=== PATIENT | female | born 1985 | race Caucasian/White ===

== ENCOUNTER 2017-09-07 14:34 | Outpatient (CLI) | payer OTHER | END 2017-09-07 14:35 | disposition home or self-care (01) | LOC: LAB.F 14:34 | PROVIDERS: ATTEND Physician Assistant Medical | DX: L29.9 Pruritus, unspecified (principal) | CPT/HCPCS: 36415; 81599; 86003 ==

== ENCOUNTER 2017-10-24 07:49 | Outpatient (CLI) | payer OTHER ==
--- NOTE | 2017-10-24 11:34 | MRI Report ---
EXAM: RIGHT MIDFOOT MRI WITHOUT CONTRAST EXAM DATE: 10/24/2017 08:54 AM. CLINICAL HISTORY: Dorsomedial midfoot pain. COMPARISON: None. TECHNIQUE: Multiplanar, multisequence T1-weighted and fluid-sensitive sequences of the midfoot withou t contrast. Other: None. FINDINGS: Bones: No fractures, erosive or destructive changes. Articular Cartilage: Subchondral malacia and subjacent marrow edema seen on both sides of the first a nd second cuneiform articulation and also on both sides of the navicular-first and second cuneiform a rticulations. Remainder of the marrow cavity and articular surfaces appear intact. Ligaments: The visualized intertarsal, intermetatarsal, and tarsometatarsal ligaments are intact. Thi s includes the Lisfranc ligament. The visualized collateral ligaments are intact. Tendons: The flexor and extensor tendons are unremarkable. Musculature: No edema or fatty atrophy. Other: No effusions. The visualized portion of the tarsal tunnel is unremarkable. No intermetatarsal bursitis. The subcutaneous tissues are unremarkable. IMPRESSION: 1. Some chondromalacia and subjacent marrow edema on both sides the first and second cuneiform articu lation and also on both sides of the navicular-first and second cuneiform articulations. Remainder of the marrow cavity appears unremarkable. No fractures or erosive changes. 2. Tarsometatarsal ligaments, including Lisfranc ligament appear unremarkable. In the region of the M RI marker, extensor tendons at the distal medial midfoot appear intact. No tenosynovitis. [facility] SECTION Referring Provider Line: [phone] SITE ID: [id number]
== END 2017-10-24 07:50 | disposition home or self-care (01) ==
LOC: DI 07:49
PROVIDERS: ATTEND Physician Assistant Medical
DX: M67.873 Other specified disorders of tendon, right ankle and foot (principal); M94.271 Chondromalacia, right ankle and joints of right foot; M79.671 Pain in right foot

== ENCOUNTER 2018-08-17 21:45 | Outpatient (CLI) | payer OTHER ==
--- NOTE | 2018-08-17 23:33 | Ultrasound Report ---
Reason: PAIN, IN LEFT LOWER LEG Procedure Date: 08/17/2018 Accession Number: [id number] / [id number] Procedure: US - Duplex Ext Veins Left CPT Code: FULL RESULT: EXAM: LEFT LOWER EXTREMITY VENOUS ULTRASOUND EXAM DATE: 08/17/2018 11:08 PM. CLINICAL HISTORY: PAIN, IN LEFT LOWER LEG. COMPARISON: None. TECHNIQUE: Real-time sonographic vascular imaging was performed by the load checker through the lower extremity utilizing both color-flow and Doppler spectral analysis. Multiple medical office representative static images were saved for review. FINDINGS: Common Femoral Vein (CFV): Normal. CFV-GSV Junction: Normal. Profunda Femoral Vein (PFV): Normal. Femoral Vein (FV) Prox: Normal. Femoral Vein (FV) Mid: Normal. Femoral Vein (FV) Dist: Normal. Popliteal Vein: Normal. Posterior Tibial Veins: Normal. Peroneal Veins: Normal. Contralateral Side CFV: Normal. Other: None. IMPRESSION: No evidence for deep venous thrombosis. [facility]
== END 2018-08-17 21:46 | disposition home or self-care (01) ==
LOC: DI 21:45
PROVIDERS: ATTEND Physician Assistant Medical
DX: M79.662 Pain in left lower leg (principal)

== ENCOUNTER 2018-09-22 08:34 | Outpatient (CLI) | payer OTHER ==
[2018-09-22] MEDS ORDERED: GADOPENTETATE DIMEGLUMINE 5 ML VIAL IVP ONE ×2 (09:01→09:47)
[2018-09-22] MEDS ORDERED: BUFFERED LIDOCAINE 10 ML SYRINGE ONE ×2 (09:01→09:56)
[2018-09-22] MEDS ORDERED: IOTHALAMATE MEGLUMINE 50 ML VIAL ONE (09:02)
[2018-09-22] MEDS ORDERED: IOTHALAMATE MEGLUMINE 50 ML VIAL IVP ONE ×2 (09:47)
[2018-09-22] MEDS ORDERED: BUFFERED LIDOCAINE 10 ML SYRINGE IU ONE ×2 (09:47)
--- NOTE | 2018-09-22 13:17 | XRAY Report ---
Reason: PAIN IN LEFT LOWER LEG Procedure Date: 09/22/2018 Accession Number: [id number] / [id number] Procedure: FL - Arthrogram Needle Placement CPT Code: FULL RESULT: EXAM: LEFT KNEE ARTHROGRAPHIC INJECTION WITH FLUOROSCOPIC GUIDANCE EXAM DATE: 09/22/2018 09:32 AM. CLINICAL HISTORY: Pain in left lower leg. COMPARISON: ARTHROGRAM KNEE LT 09/22/2018 11:54 AM. TECHNIQUE: The risks, benefits, and alternatives of the procedure were discussed with the patient. All questions were answered. Written and verbal consent were obtained. The knee joint was marked under fluoroscopy and prepped and draped in a sterile manner. Local anesthesia was performed with 1% lidocaine. A 22-gauge needle was then inserted into the knee joint. 40 mL of a solution containing 50% iodinated contrast and a 1:200 dilution of gadolinium contrast in sterile saline was then injected. The needle was removed without immediate complication. Other: None. Fluoroscopy Time: 6 seconds. Number of Images: 3. FINDINGS: Bones and joints: No fracture or subluxation. Injection: Fluoroscopic images demonstrate needle placement and contrast in the knee joint. IMPRESSION: Successful fluoroscopically guided arthrographic injection of the knee. [facility]
--- NOTE | 2018-09-22 19:32 | MRI Report ---
Reason: PAIN IN LEFT LOWER LEG Procedure Date: 09/22/2018 Accession Number: [id number] / [id number] Procedure: MRI - Arthrogram Knee LT CPT Code: FULL RESULT: EXAM: LEFT KNEE MRI ARTHROGRAM WITH CONTRAST EXAM DATE: 09/22/2018 12:33 PM. CLINICAL HISTORY: PAIN IN LEFT LOWER LEG. COMPARISON: None. TECHNIQUE: Multiplanar, multisequence T1-weighted and fluid-sensitive sequences of the knee after an arthrographic injection of dilute gadolinium, dictated under a separate exam. Other: None. FINDINGS: Bones: No fractures or subluxations. No marrow edema. No bone lesions. Articular Cartilage: Moderate chondromalacia lateral patellar facet. Medial Meniscus: The medial meniscus is intact. Lateral Meniscus: The lateral meniscus is intact. Cruciate Ligaments: The anterior and posterior cruciate ligaments are intact. Collateral Ligaments: The medial collateral and lateral collateral ligamentous structures are intact. Tendons: The quadriceps, patellar, semimembranosus, and popliteus tendons are unremarkable. Musculature: No edema or fatty atrophy. Other: No popliteal cyst. No loose bodies. The medial and lateral retinacula are intact. Infrapatellar fat pad contrast. IMPRESSION: 1. Negative for meniscus tear or internal derangement. 2. Moderate chondromalacia lateral patellar facet. [facility] SECTION
== END 2018-09-22 08:35 | disposition home or self-care (01) ==
LOC: DI 08:34
PROVIDERS: ATTEND Physician Assistant Medical
DX: M22.42 Chondromalacia patellae, left knee (principal); M79.662 Pain in left lower leg
CPT/HCPCS: 73722; 77002

== ENCOUNTER 2018-09-22 09:55 | Emergency (ER) | payer OTHER ==
[2018-09-22] MEDS ORDERED: methylPREDNISolone SUCCINATE 125 MG/2 ML VIAL IVP STA (09:56)
[2018-09-22] MEDS ORDERED: diphenhydrAMINE INJ 50 MG/ML VIAL IVP STA (09:56)
--- NOTE | 2018-09-22 10:00 | ED Physician Documentation ---
History of Present Illness - Stated complaint Stated Complaint: REACTION TO MRI DYE - History obtained from History obtained from: Patient - History of Present Illness Timing: Today Pain level max: 0 Pain level now: 0 - Additonal information Additional information: Patient was an MRI about to undergo an arthrogram of the left knee when she started having itching and facial swelling. Brought here for evaluation. No dyspnea. No throat swelling. Has not had similar allergic reactions in the past. Nothing makes it better or worse. No fevers. She is not , breast-feeding or trying to become Review of Systems Constitutional: denies: Fever, Chills GI: denies: Vomiting, Diarrhea : denies: Now EGA Musculoskeletal: denies: Neck pain, Back pain PD PAST MEDICAL HISTORY - Past Medical History Past Medical History: No - Past Surgical History Past Surgical History: Yes /[employer] ARCHITECT: section - Present Medications Home Medications: Ambulatory Orders Medication Instructions Recorded Confirmed HYDROcod/ACETAM 5/325 [Vicodin 07/09/15 07/09/15 5/325] HYDROcod/ACETAM 5/325 [[place] 5/325] 1 ea PO Q6H PRN #15 tablet 07/10/15 Ibuprofen [Motrin] 400 mg PO Q6H PRN #30 tablet 07/10/15 predniSONE [Prednisone] 40 mg PO DAILY #10 tablet 09/22/18 - Allergies Allergies/Adverse Reactions: Allergies Allergy/AdvReac Type Severity Reaction Status Date / Time Gadolinium-Containing Allergy Hives Verified 09/22/18 09:59 Contrast Medi - Social History Does the pt smoke?: No Smoking Status: Never smoker Does the pt drink ETOH?: Yes Does the pt have substance abuse?: No - Immunizations Immunizations are current?: Yes PD ED PE NORMAL - Vitals Vital signs reviewed: Yes - General General: Alert and oriented X 3, No acute distress, Well developed/nourished - HEENT HEENT: PERRL, Moist mucous membranes, Pharynx benign, Other (Normal phonation. No trismus. No stridor. No wheezing) - Neck Neck: Supple, no meningeal sign - Cardiac Cardiac: RRR - Respiratory Respiratory: No respiratory distress, Clear bilaterally - Abdomen Abdomen: Soft, Non tender, Non distended - Derm Derm: Warm and dry, Other (Swelling to the face with erythema, especially periorbital around the left eye. The eye is able to open approximately three quarters of the way.) - Extremities Extremities: No edema, No calf tenderness / cord - Neuro Neuro: Alert and oriented X 3 - Psych Psych: Normal mood, Normal affect Results - Vitals Vitals: Vital Signs - 24 hr 09/22/18 09/22/18 09/22/18 09:56 09:58 11:14 Temperature 36.4 C L Heart Rate 62 57 L 57 L Respiratory 20 18 18 Rate Blood Pressure 115/77 106/70 108/91 H O2 Saturation 99 100 100 Oxygen O2 Source Room air PD MEDICAL DECISION MAKING - ED course Complexity details: re-evaluated patient, considered differential, d/w patient ED course: 32-year-old female with an allergic reaction to possible gadolinium. Improved with steroids and Benadryl. Swelling decreased. Patient feels better. Will allow her to go back to MRI to complete her scan. Will place on steroids for the next few days. Patient counseled regarding signs and symptoms for which I believe and urgent re-evaluation would be necessary. Patient with good understanding of and agreement to plan and is comfortable going home at this time This document was made in part using voice recognition software. While efforts are made to proofread this document, sound alike and grammatical errors may occur. Departure - Departure Disposition: 01 Home, Self Care Clinical Impression: Allergic reaction to contrast dye Qualifiers: Encounter type: initial encounter Qualified Code(s): T50.8X5A - Adverse effect of diagnostic agents, initial encounter Condition: Good Instructions: ED Drug React Allergic Follow-Up: your,doctor in 1 week [Other] Prescriptions: predniSONE [Prednisone] 40 mg PO DAILY #10 tablet Comments: Return if you worsen. You can take benadryl at home as well for any itching or swelling. Take the steroids until gone. Discharge Date/Time: 09/22/18 11:14
[2018-09-22] MEDS ORDERED: predniSONE 20 MG TABLET PO STA (10:49)
[2018-09-22 11:15] VITALS: BP 108/91
== END 2018-09-22 11:14 | disposition home or self-care (01) ==
LOC: ED 09:55
DX: L53.9 Erythematous condition, unspecified (principal); R22.0 Localized swelling, mass and lump, head; T50.8X5A Adverse effect of diagnostic agents, initial encounter; Y92.538 Other ambulatory health services establishments as the place of occurrence of the external cause; M22.42 Chondromalacia patellae, left knee; M79.662 Pain in left lower leg
CPT/HCPCS: 27369; 73722; 77002; 96374; 99283; J1200; J7512; Q9961

== ENCOUNTER 2019-05-02 08:30 | Outpatient (CLI) | payer OTHER ==
[2019-05-02 17:27] LABS: BASOPHILS % (AUTO) 0.5 %; EOSINOPHILS # (AUTO) 0.2 10^3/uL (0.0-0.7); EOSINOPHILS % (AUTO) 4.4 %; HGB - HEMOGLOBIN 13.1 g/dL (12.0-16.0); LYMPHOCYTES # (AUTO) 1.4 10^3/uL (1.5-3.5); LYMPHOCYTES % (AUTO) 35.8 %; MEAN CORPUSCULAR HGB CONC 32.6 g/dL (32.0-36.0); MEAN PLATELET VOLUME 11.1 fL (7.9-10.8); MONOCYTES # (AUTO) 0.3 10^3/uL (0.0-1.0); MONOCYTES % (AUTO) 7.5 %; NEUTROPHILS % (AUTO) 51.5 %; PLT - PLATELET COUNT 214 10^3/uL (130-450); RED BLOOD COUNT 4.37 10^6/uL (4.20-5.40); RED CELL DISTRIBUTION WIDTH 12.9 % (12.0-15.0); WHITE BLOOD COUNT 3.9 x10^3/uL (4.8-10.8)
[2019-05-02 17:48] LABS: ALBUMIN 4.2 g/dL (3.2-5.5); ALBUMIN/GLOBULIN RATIO 1.3 (1.0-2.2); ALKALINE PHOSPHATASE 58 IU/L (42-121); ALT ALANINE AMINOTRANSFERASE 16 IU/L (10-60); AST ASPARTATE AMINOTRANSFERASE 18 IU/L (10-42); BILIRUBIN,TOTAL 0.9 mg/dL (0.2-1.0); BUN - BLOOD UREA NITROGEN 16 mg/dL (6-20); CALCIUM 8.5 mg/dL (8.5-10.3); CARBON DIOXIDE - CO2 27 mmol/L (21-32); CHLORIDE 106 mmol/L (101-111); CHOL/HDL RATIO 4.1 (<4.4); CHOLESTEROL 169 mg/dL; CREATININE 0.6 mg/dL (0.4-1.0); GFR - MDRD 114 (>89); GLUCOSE 112 mg/dL (70-100); HDL CHOLESTEROL 41 mg/dL; LDL CHOLESTEROL,CALCULATED 104 mg/dL; LDL/HDL RATIO 2.5 (<4.4); SODIUM 138 mmol/L (135-145); TOTAL PROTEIN 7.4 g/dL (6.7-8.2); VLDL CHOLESTEROL 24 mg/dL
[2019-05-05 07:16] LABS: ANA SCREEN NEGATIVE (NEGATIVE)
== END 2019-05-02 08:31 | disposition home or self-care (01) ==
LOC: LAB.S 08:30
PROVIDERS: ATTEND Registered Nurse
DX: Z00.00 Encounter for general adult medical examination without abnormal findings (principal); R21 Rash and other nonspecific skin eruption
CPT/HCPCS: 36415; 80053; 80061; 83721; 84443; 85025; 86038

== ENCOUNTER 2020-05-25 13:04 | Outpatient (CLI) | payer OTHER ==
--- NOTE | 2020-05-25 14:53 | XRAY Report ---
PROCEDURE: Tib/Fib LT INDICATIONS: PAIN IN LEFT LOWER LEG TECHNIQUE: 2 views of the tibia and fibula were acquired. COMPARISON: None FINDINGS: Bones: No fractures or dislocations. No suspicious bony lesions. No suspicious periosteal reaction . Imaged portions of the knee and ankle are unremarkable. Soft tissues: No suspicious soft tissue calcifications or masses. 2 punctate metallic objects are n oted along the anterior and medial aspect of the distal leg. IMPRESSION: No acute osseous abnormality. 2 punctate metallic foreign bodies along the medial and anterior aspect of the distal leg. Reviewed by: Jamie Kwok DO on 05/25/2020 1:52 PM [facility] Approved by: Jamie Kwok DO on 05/25/2020 1:52 PM [facility] Station ID: [id number]
== END 2020-05-25 23:59 | disposition home or self-care (01) ==
LOC: DI.S 13:04
PROVIDERS: ATTEND Physician Assistant Medical
DX: M79.662 Pain in left lower leg (principal); M79.5 Residual foreign body in soft tissue

== ENCOUNTER 2020-09-16 10:31 | Outpatient (CLI) | payer OTHER ==
[2020-09-16 15:13] LABS: BASOPHILS % (AUTO) 0.5 %; EOSINOPHILS # (AUTO) 0.1 10^3/uL (0.0-0.7); EOSINOPHILS % (AUTO) 2.8 %; HCT - HEMATOCRIT 38.6 % (37.0-47.0); HGB - HEMOGLOBIN 12.6 g/dL (12.0-16.0); LYMPHOCYTES # (AUTO) 1.4 10^3/uL (1.5-3.5); LYMPHOCYTES % (AUTO) 34.5 %; MEAN CORPUSCULAR HGB CONC 32.6 g/dL (32.0-36.0); MEAN CORPUSCULAR VOLUME 91.9 fL (81.0-99.0); MONOCYTES # (AUTO) 0.3 10^3/uL (0.0-1.0); MONOCYTES % (AUTO) 6.6 %; NEUTROPHILS # (AUTO) 2.2 10^3/uL (1.5-6.6); NEUTROPHILS % (AUTO) 55.6 %; PLT - PLATELET COUNT 225 10^3/uL (130-450); RED CELL DISTRIBUTION WIDTH 12.1 % (12.0-15.0); WHITE BLOOD COUNT 3.9 x10^3/uL (4.8-10.8)
[2020-09-16 15:40] LABS: ALBUMIN 4.1 g/dL (3.2-5.5); ALBUMIN/GLOBULIN RATIO 1.3 (1.0-2.2); BILIRUBIN,TOTAL 0.6 mg/dL (0.2-1.0); CALCIUM 8.6 mg/dL (8.5-10.3); CREATININE 0.7 mg/dL (0.4-1.0); POTASSIUM 3.7 mmol/L (3.5-5.0); TOTAL PROTEIN 7.2 g/dL (6.7-8.2)
[2020-09-16 15:56] LABS: THYROID STIMULATING HORMONE 0.93 uIU/mL (0.34-5.60)
== END 2020-09-16 10:32 | disposition home or self-care (01) ==
LOC: LAB.S 10:31
PROVIDERS: ATTEND Registered Nurse
DX: R53.83 Other fatigue (principal)
CPT/HCPCS: 36415; 80053; 84443; 85025

== ENCOUNTER 2022-06-25 14:12 | Outpatient (CLI) | payer OTHER ==
[2022-06-25 19:58] LABS: BASOPHILS % (AUTO) 0.4 %; EOSINOPHILS # (AUTO) 0.2 10^3/uL (0.0-0.7); EOSINOPHILS % (AUTO) 3.2 %; HCT - HEMATOCRIT 40.1 % (37.0-47.0); HGB - HEMOGLOBIN 13.2 g/dL (12.0-16.0); LYMPHOCYTES # (AUTO) 1.9 10^3/uL (1.5-3.5); LYMPHOCYTES % (AUTO) 37.8 %; MEAN CORPUSCULAR HEMOGLOBIN 29.7 pg (27.0-31.0); MEAN CORPUSCULAR HGB CONC 32.9 g/dL (32.0-36.0); MEAN CORPUSCULAR VOLUME 90.3 fL (81.0-99.0); MEAN PLATELET VOLUME 10.6 fL (7.9-10.8); MONOCYTES # (AUTO) 0.4 10^3/uL (0.0-1.0); MONOCYTES % (AUTO) 7.2 %; NEUTROPHILS # (AUTO) 2.6 10^3/uL (1.5-6.6); NEUTROPHILS % (AUTO) 51.2 %; PLT - PLATELET COUNT 270 10^3/uL (130-450); RED BLOOD COUNT 4.44 10^6/uL (4.20-5.40); RED CELL DISTRIBUTION WIDTH 12.7 % (12.0-15.0); RETICULOCYTE COUNT % (AUTO) 2.93 % (0.5-2.3)
[2022-06-25 20:20] LABS: ALBUMIN 4.2 g/dL (3.2-5.5); ALBUMIN/GLOBULIN RATIO 1.4 (1.0-2.2); BILIRUBIN,TOTAL 0.6 mg/dL (0.2-1.0); CREATININE 0.6 mg/dL (0.4-1.0); POTASSIUM 3.8 mmol/L (3.5-5.0); TOTAL PROTEIN 7.3 g/dL (6.7-8.2)
[2022-06-25 20:28] LABS: THYROID STIMULATING HORMONE 0.96 uIU/mL (0.34-5.60)
[2022-06-25 20:35] LABS: FERRITIN 27.5 ng/mL (11.0-306.8)
[2022-06-25 20:39] LABS: FOLATE 9.92 ng/mL (5.90 - >24.8)
== END 2022-06-25 14:13 | disposition home or self-care (01) ==
LOC: LAB.S 14:12
PROVIDERS: ATTEND Registered Nurse
DX: R53.83 Other fatigue (principal); Z79.899 Other long term (current) drug therapy; Z13.29 Encounter for screening for other suspected endocrine disorder
CPT/HCPCS: 36415; 80053; 81599; 82306; 82607; 82728; 82746; 83540; 84443; 84466; 85025; 85045

== ENCOUNTER 2022-09-15 13:23 | Outpatient (CLI) | payer OTHER ==
--- NOTE | 2022-09-15 17:09 | XRAY Report ---
PROCEDURE: Cervical Spine 2 View INDICATIONS: XRAY TECHNIQUE: 3 view(s) of the cervical spine were acquired. COMPARISON: None. FINDINGS: Bones: No fractures or dislocations to the C7-T1 level. The lateral masses of C1 appear intact on t he odontoid view. No suspicious bony lesions. There is straightening and slight reversal cervical c urvature with apex at C5-6. Minimal scattered disc space narrowing is present. Soft tissues: No prevertebral soft tissue swelling. IMPRESSION: Nonspecific reversal cervical curvature. Reviewed by: Vibha Smith MD on 09/15/2022 5:08 PM PDT Approved by: Vibha Smith MD on 09/15/2022 5:08 PM PDT Station ID: [id number]
== END 2022-09-15 13:24 | disposition home or self-care (01) ==
LOC: DI.S 13:23
PROVIDERS: ATTEND Registered Nurse
DX: R20.2 Paresthesia of skin (principal)

== ENCOUNTER 2023-10-25 10:00 | Outpatient (CLI) | payer OTHER ==
[2023-10-25 15:30] LABS: BASOPHILS % (AUTO) 0.6 %; EOSINOPHILS # (AUTO) 0.3 10^3/uL (0.0-0.7); EOSINOPHILS % (AUTO) 5.5 %; HCT - HEMATOCRIT 40.7 % (37.0-47.0); LYMPHOCYTES # (AUTO) 1.5 10^3/uL (1.5-3.5); LYMPHOCYTES % (AUTO) 32.2 %; MEAN CORPUSCULAR HEMOGLOBIN 29.2 pg (27.0-31.0); MEAN CORPUSCULAR HGB CONC 31.9 g/dL (32.0-36.0); MEAN CORPUSCULAR VOLUME 91.5 fL (81.0-99.0); MEAN PLATELET VOLUME 11.1 fL (7.9-10.8); MONOCYTES # (AUTO) 0.3 10^3/uL (0.0-1.0); NEUTROPHILS # (AUTO) 2.6 10^3/uL (1.5-6.6); NEUTROPHILS % (AUTO) 54.5 %; PLT - PLATELET COUNT 230 10^3/uL (130-450); RED BLOOD COUNT 4.45 10^6/uL (4.20-5.40); RED CELL DISTRIBUTION WIDTH 12.5 % (12.0-15.0); WHITE BLOOD COUNT 4.7 x10^3/uL (4.8-10.8)
[2023-10-25 15:49] LABS: ALBUMIN 4.3 g/dL (3.2-5.5); ALBUMIN/GLOBULIN RATIO 1.4 (1.0-2.2); ALKALINE PHOSPHATASE 65 IU/L (42-121); ALT ALANINE AMINOTRANSFERASE 12 IU/L (10-60); AST ASPARTATE AMINOTRANSFERASE 14 IU/L (10-42); BILIRUBIN,TOTAL 0.9 mg/dL (0.2-1.0); BUN - BLOOD UREA NITROGEN 11 mg/dL (6-20); CARBON DIOXIDE - CO2 28 mmol/L (21-32); CHLORIDE 104 mmol/L (101-111); CHOL/HDL RATIO 3.6 (<4.4); CHOLESTEROL 168 mg/dL; CREATININE 0.7 mg/dL (0.6-1.3); GFR - MDRD 93 (>89); GLUCOSE 99 mg/dL (74-104); HDL CHOLESTEROL 47 mg/dL; LDL CHOLESTEROL,CALCULATED 101 mg/dL; LDL/HDL RATIO 2.1 (<4.4); POTASSIUM 3.7 mmol/L (3.5-4.5); SODIUM 135 mmol/L (135-145); TOTAL PROTEIN 7.3 g/dL (6.4-8.9); TRIGLYCERIDES 98 mg/dL (48-352); VLDL CHOLESTEROL 20 mg/dL
== END 2023-10-25 10:01 | disposition home or self-care (01) ==
LOC: LAB.S 10:00
PROVIDERS: ATTEND Registered Nurse
DX: Z13.228 Encounter for screening for other metabolic disorders (principal); Z13.220 Encounter for screening for lipoid disorders; Z13.29 Encounter for screening for other suspected endocrine disorder; Z13.0 Encounter for screening for diseases of the blood and blood-forming organs and certain disorders involving the immune mechanism
CPT/HCPCS: 36415; 80053; 80061; 83721; 84443; 85025